=== PATIENT | male | born 1965 | race Caucasian/White ===

== ENCOUNTER 2022-09-11 18:12 | Emergency (ER) | payer SELFPAY ==
[~2022-09-11] VITALS: Ht 170.2 cm; Wt 77.0 kg
[2022-09-11 18:14] VITALS: BP 122/80
[2022-09-11] MEDS ORDERED: MAGNESIUM/ALUMINUM HYDROXIDE/SIMETHICONE 30ML UDC PO STA (23:10)
[2022-09-11] MEDS ORDERED: ONDANSETRON 4MG ODT PO STA (23:10)
[2022-09-11 23:47] LABS: BASOPHILS % 0.4 % (0.0-2.0); EOSINOPHILS % 0.2 % (0.0-5.0); HEMATOCRIT. 44.7 % (42.0-52.0); HEMOGLOBIN. 15.8 g/dL (14.0-18.0); LYMPHOCYTES % 30.7 % (20.0-50.0); MEAN CORPUSCULAR HEMOGLOBIN 32.3 pg (28.0-32.0); MEAN CORPUSCULAR VOLUME 91.3 fL (80.0-94.0); MONOCYTES % 11.6 % (2.0-8.0); NEUTROPHILS % 57.1 % (40.0-76.0); PLATELET 192 x1000/uL (130-400); RED CELL DISTRIBUTION WIDTH 12.7 % (11.6-14.6)
[2022-09-12] LABS: CHLORIDE 98 mEq/L (98-107)
[2022-09-12] MEDS ORDERED: ONDANSETRON 4MG ODT PO NR (02:15)
[2022-09-12] MEDS ORDERED: MAGNESIUM/ALUMINUM HYDROXIDE/SIMETHICONE 30ML UDC PO NR (02:15)
[2022-09-12] MEDS ORDERED: GUAI-450 MT (02:36)
== END 2022-09-12 02:45 | disposition home or self-care (01) ==
LOC: ER 18:21
DX: J06.9 Acute upper respiratory infection, unspecified (principal); F17.210 Nicotine dependence, cigarettes, uncomplicated
CPT/HCPCS: 36415; 71045; 80053; 83690; 85025; 93005; 99285; Q0162